=== PATIENT | female | born 2005 | race African-American/Black ===

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

== ENCOUNTER 2025-09-18 13:18 | Emergency (ER) | payer BC | END 2025-09-18 14:37 | disposition home or self-care (01) | LOC: MW.ED 13:18 | DX: R45.89 Other symptoms and signs involving emotional state (principal) | CPT/HCPCS: 99283 ==